=== PATIENT | male | born 1985 | race African-American/Black ===

== ENCOUNTER 2018-05-06 18:46 | Emergency (ER) | payer MEDICAID ==
[~2018-05-06] VITALS: Ht 180.3 cm; Wt 93.0 kg
[2018-05-06 20:03] VITALS: BP 138/65
== END 2018-05-06 20:55 | disposition left against medical advice (07) ==
LOC: ER 18:46
DX: F41.0 Panic disorder [episodic paroxysmal anxiety] (principal)
CPT/HCPCS: 99281